=== PATIENT | male | born 1950 | race Caucasian/White ===

== ENCOUNTER → 2016-06-16 | Outpatient (CLI) | payer OTHER | LOC: FIMAGING 09:49 | PROVIDERS: ATTEND Orthopaedic Surgery | DX: Z01.818 Encounter for other preprocedural examination (principal); M19.011 Primary osteoarthritis, right shoulder; M24.011 Loose body in right shoulder ==

== ENCOUNTER 2016-08-02 06:06 | Day surgery (SDC) | payer OTHER ==
[2016-07-19 12:34] LABS: % IMMATURE GRANULYOCYTES 0.6 % (0.0-1.1); ABSOLUTE IMMATURE GRANULOCYTES 0.04 10^3/uL (0.00-0.10); ADD DIFF? NO; ADD MORPH? NO; ADD SCAN? NO; ATYPICAL LYMPHOCYTE FLAG 0 (0-99); FRAGMENT RBC FLAG 0 (0-99); HEMOGLOBIN 18.1 g/dL (13.7-17.5); LEFT SHIFT FLG 0 (0-99); LIPEMIA HEMOLYSIS FLAG 90 (0-99); MEAN CELL HEMOGLOBIN 31.3 pg (27.9-34.1); MEAN CELL HEMOGLOBIN CONCENTR. 35.5 g/dL (32.4-36.7); MEAN CELL VOLUME 88.2 fL (81.5-99.8); MEAN PLATELET VOLUME 10.5 fL (8.7-11.7); PLATELET CLUMPS FLAG 10 (0-99); PLATELET COUNT 234 10^3/uL (150-400); RED BLOOD CELL COUNT 5.78 10^6/uL (4.40-6.38); RED CELL DISTRIBUTION WIDTH 13.5 % (11.5-15.2)
[2016-08-02] MEDS ORDERED: ROPIVACAINE HCL 20 MG/10 ML INJ EP ONE (06:43)
[2016-08-02] MEDS ORDERED: LIDOCAINE 1% 2 ML INJ ONE (06:51)
[2016-08-02] MEDS ORDERED: LR 1,000 ML IV ONE (07:13)
[2016-08-02] MEDS ORDERED: LIDOCAINE 1% 5 ML SDV ID PRN (07:13)
[2016-08-02] MEDS ORDERED: LIDOCAINE 2% 5 ML SDV ONE (07:14)
[2016-08-02] MEDS ORDERED: fentaNYL 250 MCG/5 ML INJ ONE (07:15)
[2016-08-02] MEDS ORDERED: GLYCOPYRROLATE 0.2 MG/1 ML VIAL ONE (07:15)
[2016-08-02] MEDS ORDERED: PROPOFOL 200 MG/20 ML VIAL ONE (07:15)
[2016-08-02] MEDS ORDERED: ROCURONIUM 50 MG/5 ML VIAL ONE (07:15)
[2016-08-02] MEDS ORDERED: MIDAZOLAM 2 MG/2 ML VIAL ONE (07:18)
[2016-08-02] MEDS ORDERED: ROPIVACAINE HCL 150 MG/30 ML INJ ONE (07:18)
[2016-08-02] MEDS ORDERED: CEFAZOLIN 2 GM/DEXTROSE/100 ML BAG IV ONE (07:21)
[2016-08-02] MEDS ORDERED: ceFAZolin 2 GM/DEXTROSE 100 ML IV ONE (09:00)
[2016-08-02] MEDS ORDERED: SUGAMMADEX SODIUM 200 MG/2 ML VIAL IVP ONE (10:04)
[2016-08-02] MEDS ORDERED: KETOROLAC 30 MG/1 ML SDV ONE (10:45)
[2016-08-02] MEDS ORDERED: KETOROLAC 15 MG/1 ML SDV IVP ONE (11:00)
[2016-08-02] MEDS ORDERED: oxyCODONE IR 5 MG TAB PO PRN (11:00)
[2016-08-02] MEDS ORDERED: DIAZEPAM 5 MG TAB PO ONE (11:00)
[2016-08-02] MEDS ORDERED: PROMETHAZINE HCL 25 MG SUPPR PR PRN (11:00)
[2016-08-02] MEDS ORDERED: HYDROmorphONE/DILAUDID 1 MG/ML SYR IVP PRN (11:00)
[2016-08-02] MEDS ORDERED: LORazepam 2 MG/ML INJ IVP ONE (11:00)
[2016-08-02] MEDS ORDERED: ONDANSETRON 4 MG/2 ML VIAL IVP PRN (11:00)
--- NOTE | 2016-08-02 11:05 | GOP ---
[f rep st] OPERATIVE REPORT DATE OF OPERATION: 08/02/2016 SURGEON: Yadira Nuñez MD ENVIRONMENTAL COORDINATOR: Lizy Starks P.A.-C., medically required for positioning of the arm during open total shoulder and careful retraction of vital neurovascular structures, including the axillary nerve. PREOPERATIVE DIAGNOSIS: 1. Right shoulder loose body. 2. Right shoulder osteoarthritis. 3. Right shoulder biceps pathology. POSTOPERATIVE DIAGNOSIS: 1. Right shoulder loose body. 2. Right shoulder osteoarthritis. 3. Right shoulder biceps pathology. PROCEDURE PERFORMED: 1. Open right total shoulder replacement. 2. Open biceps tenodesis. 3. Open loose body removal from the glenohumeral joint measuring 5 x 1.5 cm. FINDINGS: ESTIMATED BLOOD LOSS: 300 mL. TOTAL SURGICAL TIME: 2 hours. IMPLANTS USED: Medium size glenoid VaultLock Arthrex 11 mm humeral stem, 54/21 humeral head. INDICATIONS: A 65-year-old male with end-stage right shoulder osteoarthritis. Clinical radiographic MRI and CT scan confirmed the cuff was intact. Osteoarthritis with approximately 15-20 degrees of retroversion of the glenoid. The patient failed conservative measures and would like some pain relief. He presents for surgery. DESCRIPTION OF PROCEDURE: The patient identified in the preoperative holding area. Consent, laterality and preoperative antibiotics were confirmed delivered. All questions were answered. His was available at the bedside for questions and answers. The right shoulder was identified. A preoperative medical assessment was identified and deemed fit for surgery. The patient was brought into the operating room. An interscalene block under ultrasound by Anesthesiology. General anesthesia. The patient was placed in beach chair position with extremities well-padded. The shoulder was supported with a scapular bump and the beach chair. The head of the bed was 30 degrees. All extremities well-padded. TEDs and SCDs were in place. The right upper extremity was prepped and draped in the usual sterile fashion. A surgical time- out was performed. Right shoulder identified. Deltopectoral interval. Cephalic vein was taken with the deltoid. Subdeltoid adhesions were taken down. Clavipectoral fascia was taken. The conjoined tendon was identified. Medium Kolbel retractors were placed. The subscap was identified. There was a large inferior osteophyte that was kind of bulging the subscap. We identified the bicipital groove. Did a biceps tenodesis to a pec tendon cuff. We released the pec tendon by about 1.5 cm. We did a biceps tenotomy. We marked the bicipital groove and went into the rotator interval with scissors. We identified the upper border of the subscapularis and the lower border of the subscapularis at the 3 sisters. We did a lesser tuberosity osteotomy with a curved osteotome and placed a tagging stitch. We did a capsulectomy, labrectomy anteriorly. With progressive external rotation and adduction of the arm, we did a capsular release protecting the axillary nerve to the inferior position. We were able to dislocate the shoulder fairly easily. In about 20 degrees retroversion we did a freehand cut, protecting the rotator cuff and posterior cuff. The head looked like it measured about 17 mm x 52, 53 diameter. We placed the head protector. Trimmed some osteophytes. With a Bankart retractor, we released the capsule and freed up a little bit of the subscap to have a nice bounce. We completed the inferior capsular release. We secured a head retractor and Mcdonald retractor to protect the axillary nerve. We did a posterior capsular release. We had about 1.5 cm of gap in the back, which was nice for reducing the head posteriorly and inferiorly. With the arm on a padded [place], we exposed the glenoid. We used a cannulated system by Arthrex and a pegged glenoid. We chose a medium, which had a nice fit and fill. We did ream with Nautilus reamers and took about 15 degrees off the anterior portion, had a nice fit and fill and then we cemented in a pegged glenoid medium size. The arm was copiously washed out with 500 mL of warm normal saline. We went back to the humeral side preparation. With the arm in adduction and progressive external rotation and Homans above and below the humeral head, we went ahead and did a canal reamer with a 6 and a 7 and then broached up to 11. We placed the real stem in with the sutures according to the Arthrex mattress subscap configuration. We trialed with a 52 which looked a little too small, and then we did a 54 and had about a 40% posterior leeway in external rotation with the subscap tightened up to about 30 degrees. We went ahead and washed out. We placed a 54 head. Trimmed osteophytes. And then we did the specialized double row subscap repair for the lesser tuberosity osteotomy according to Arthrex. Tied the top sutures, bottom sutures, the middle diagonal sutures and then the medial sutures to tighten everything down. The arm was placed in neutral during the subscap repair. The wound was copiously washed out with 500 mL of warm normal saline. Three-0 PDS for closure, 3-0 Monocryl, 3-0 Prolene with an escape stitch. Mastisol, Steri-Strips, Xeroform, Mepilex dressing and a sling applied. COMPLICATIONS: None. DISPOSITION: Extubated awake to the PACU in stable condition. /[id number]/MODL and [id number]/MODL, 08/02/16 1427 [facility]
== END 2016-08-02 12:24 | disposition home health service (06) ==
LOC: FSGY 06:06
PROVIDERS: ATTEND Orthopaedic Surgery
PROC: 0RCJ0ZZ Extirpation of Matter from Right Shoulder Joint, Open Approach (ICD-10-PCS; principal; 2016-08-02 07:15)
PROC: 0RRJ0J6 Replacement of Right Shoulder Joint with Synthetic Substitute, Humeral Surface, Open Approach (ICD-10-PCS; principal; 2016-08-02 07:15)
DX: M19.011 Primary osteoarthritis, right shoulder (principal); M24.011 Loose body in right shoulder; I25.10 Atherosclerotic heart disease of native coronary artery without angina pectoris; Z95.1 Presence of aortocoronary bypass graft; I10 Essential (primary) hypertension; E78.5 Hyperlipidemia, unspecified; G47.33 Obstructive sleep apnea (adult) (pediatric)
CPT/HCPCS: C1713; J0171; J0690; J1885; J2250; J2704; J2795; J3010

== ENCOUNTER → 2017-11-14 | Outpatient (CLI) | payer OTHER | LOC: BHFA 09:30 | PROVIDERS: ATTEND Internal Medicine Cardiovascular Disease | DX: R94.31 Abnormal electrocardiogram [ECG] [EKG] (principal); I25.10 Atherosclerotic heart disease of native coronary artery without angina pectoris | CPT/HCPCS: 78452; 93017; A9500 ==